=== PATIENT | female | born 1955 | race Caucasian/White ===

== ENCOUNTER → 2017-12-03 13:36 | Outpatient (CLI) | payer MEDICARE, MEDICAID, SELFPAY ==
--- NOTE | 2017-12-03 13:44 | CT_ITS ---
CT lung screening EXAM: CT LUNG LOW DOSE WO CONTRAST HISTORY: Asymptomatic with 30+ pack year smoking history ITS.REASON: H/O NICOTINE DEPENDENCE ORDERING PHYSICIAN: Abraham Adamson MD PATIENT AGE: 62 years COMPARISON: None TECHNIQUE: The exam was performed on a GE Light Speed [address] scanner using 2.90 mGy CTDI. A low dose helical CT CHEST was performed on a multi-detector scanner. All CT scans at the facility use one or more dose reduction, viz: automated exposure control, ma/kV adjustment per patient size (including targeted exams where dose is matched to indication, i.e. head), or iterative reconstruction technique. The LDCT was performed in a facility that meets the criteria for the screening program. Data regarding this exam was submitted to [employer] which is an approved registry. The order for this exam indicates that it came as a result of a lung cancer screening counseling shard decision-making visit that included all the elements required of such a visit including smoking cessation. The radiologist interpreting this exam meets the CMS criteria for the LDCT lung cancer screening program. The exam is reported using the Lung-RADS classification scale and reported to the [employer]CR registry. NOTE: This study was performed for the specific purposes of lung cancer screening and is not an alternative to diagnostic chest CT. RADIATION DOSE: CTDI vol(CT dose Index-volume) = 2.90mG DLP (Dose Length Product) = 96.38 mGcm FINDINGS: There is a 3 mm noncalcified nodule in the left perihilar region nonspecific. No suspicious pulmonary nodules are evident. Small nodes are present in the mediastinum. No central obstructing lesions. Atelectatic or fibrotic changes are present in the lung bases Incidental note made of coronary artery calcifications. Gas is present throughout the esophagus which could be due to reflux. IMPRESSION: 1. Lung RADS Category: 2, benign 2. Other findings: Coronary artery disease, nonspecific gas within the esophagus RECOMMENDATIONS: 12 month LDCT follow-up
== END ==
PROVIDERS: PCP Family Medicine; Visit Provider Family Medicine
DX: Z12.2 Encounter for screening for malignant neoplasm of respiratory organs (principal); Z87.891 Personal history of nicotine dependence

== ENCOUNTER → 2020-01-20 09:45 | Outpatient (CLI) | payer MEDICARE, MEDICAID, SELFPAY ==
[2020-01-21 16:17] LABS: Covid-19 Nasal PCR Sendout Lex Not Detected
== END ==
PROVIDERS: PCP Family Medicine; Visit Provider Nurse Practitioner Family
DX: Z03.818 Encounter for observation for suspected exposure to other biological agents ruled out (principal)
CPT/HCPCS: U0004

== ENCOUNTER 2020-04-07 16:19 | Emergency (ER) | payer MEDICARE, MEDICAID, SELFPAY ==
[2020-04-07 16:19] VITALS: BP 156/84; PULSE 128; RESP 18; TEMP 37.6; O2SAT 99; BMI 27.4
--- NOTE | 2020-04-07 16:51 | ECG_ITS ---
APPROVED REPORT Exam: Resting ECG HR:117 bpm ECG Measurements Heart Rate 117 AXES ND 144 P 75 QRSd 78 QRS 55 QT 318 T 60 QTc 443 Conclusion Sinus tachycardia Left atrial abnormality Borderline ECG Electronically signed by : Abraham Oglesby, 04/08/2020 08:39:56
--- NOTE | 2020-04-07 16:51 | XR_ITS ---
PROCEDURE: XR CHEST PORTABLE CLINICAL HISTORY: soa COMPARISON: No exams were available for comparison FINDINGS: The cardiomediastinal silhouette and pulmonary vascularity are within normal limits. Faint increased density is present in the right lower lung zone. This could be related to overlying soft tissue attenuation versus ground-glass infiltrate. Upright PA and lateral chest may provide further evaluation. Bone plate is present over lower cervical spine IMPRESSION: Possible patchy ground-glass infiltrate right lower lobe Dictated by: Rodney Batista MD 04/07/2020 18:06 Rodney Batista MD in [facility] 04/07/2020 18:06
[2020-04-07 16:58] VITALS: BP 143/67; PULSE 117; O2SAT 98
--- NOTE | 2020-04-07 17:02 | [facility].EDGENADL ---
ED Disposition Clinical Impression: Acute bronchitis Qualifiers: Bronchitis organism: unspecified organism Qualified Code(s): J20.9 - Acute bronchitis, unspecified Disposition: Home, Self-Care Condition on Discharge: Good Additional Instructions: Zithromax and prednisone as prescribed. Tessalon for cough. Follow-up with your cleat blanker for possible pulmonary hypertension, coronary artery calcification. Follow-up with your primary care provider, call Thursday for appointment. Call back to the emergency department in 3 hrs to obtain your COVID-19 test result. Quarantine yourself until you obtain your result. Additional instructions for SHORTNESS OF BREATH: See your physician as soon as possible for further evaluation. Return immediately if worsening shortness of breath or if vomiting, chest pain, fever, coughing of blood, or passing out. Prescriptions: predniSONE [Prednisone 20mg Tab] 20 mg PO BID #10 tab Prescription Printed Benzonatate [Tessalon Perle 100mg Cap] 100 mg PO TIDP PRN #20 cap PRN Reason: Cough Prescription Printed Azithromycin [Zithromax 250mg tab] 250 mg PO DAILY #4 tab Prescription Printed Referrals: Abraham Adamson MD [Primary Care Provider] - - Critical Care Critical Care Time: No Attestation: On 04/07/20, the high probability of a clinically significant, sudden or life threatening deterioration of the following system(s) required my full and direct attention, intervention and personal management. The time I documented below is in addition to time spent performing reported procedures but includes the following listed in this critical care notation. Medical Decision Making - [place]un[place] Inquiry Pt receiving controlled substance: No Vital Signs: 04/07/20 16:19 04/07/20 16:58 04/07/20 17:59 Temperature 99.7 F H Temperature Source Oral Pulse Rate [Left Radial] 128 H 117 H 117 H Respiratory Rate 18 Blood Pressure [Right Arm] 156/84 H 143/67 H 155/63 H Blood Pressure Mean [Right Arm] 108 92 93 Blood Pressure Source [Right Arm] Automatic Cuff Automatic Cuff Automatic Cuff Blood Pressure Position [Right Arm] Sitting Sitting Sitting 02 Sat by Pulse Oximetry 99 98 98 Oxygen Delivery Method Room Air Room Air Room Air - Lab Data Lab Results 04/07/20 16:25: WBC 9.5, RBC 5.42 H, Hgb 17.4 H, Hct 53.7 H, MCV 99.2 H, MCH 32.1 H, MCHC 32.4, RDW 14.6, Plt Count 428 H, MPV 7.9, Neut % (Auto) 55.1, Lymph % (Auto) 37.7, [place] % (Auto) 4.1, Eos % (Auto) 1.8, Baso % (Auto) 1.2, Neut # (Auto) 5.3, Lymph # (Auto) 3.6, [place] # (Auto) 0.4, Eos # (Auto) 0.2, Baso # (Auto) 0.1 04/07/20 16:25: Sodium 130 L, Potassium 3.8, Chloride 93 L, Carbon Dioxide 29, Anion Gap 11.8, BUN 11, Creatinine 0.90, Estimated Creat Clear 65, Estimated GFR 63, Est GFR ( Amer) 76, Glucose 215 H, Calcium 11.1 H, Total Bilirubin 0.8, AST 28, ALT 20, Alkaline Phosphatase 135 H, Troponin I 0.02, Total Protein 9.7 H, Albumin 5.2 H, Globulin 4.5 H, Albumin/Globulin Ratio 1.2 04/07/20 16:25: Lactate 1.3 04/07/20 16:52: D-Dimer 1.03 H Result diagrams: 04/07/20 16:25 04/07/20 16:25 Orders (Tests/Meds): ED MEDICATIONS Generic Name Dose Route Start Last Admin Trade Name Freq PRN Reason Stop Dose Admin Prednisone 40 mg 04/07/20 19:57 Prednisone 20mg Tab PO 04/07/20 19:58 ONCE ONE Sodium Chloride 10 ml 04/07/20 19:25 04/07/20 19:00 Sodium Chloride 0.9% 10ml Syr (Rad Only) IV 05/07/20 19:24 10 ml NEEDED PRN Administration Maintain IV Site Discontinued Medications Generic Name Dose Route Start Last Admin Trade Name Freq PRN Reason Stop Dose Admin Hydrocodone Bitart/Acetaminophen 1 tab 04/07/20 18:17 04/07/20 18:25 Hydrocodone 10mg/Apap 325mg Tab PO 04/07/20 18:18 1 tab ONCE ONE Administration Azithromycin 500 mg 04/07/20 19:56 Azithromycin 250mg Tablet PO 04/07/20 19:57 ONCE ONE Protocol Benzonatate 100 mg 04/07/20 19:56 Benzon
[2020-04-07 17:16] LABS: Chloride 93 mmol/L (98-107); Potassium 3.8 mmoL/L (3.5-5.1); Sodium 130 mmol/L (136-145)
[2020-04-07 17:19] LABS: Alanine Aminotransferase 20 U/L (12-78); Albumin Level 5.2 g/dl (3.5-5.0); Albumin/Globulin Ratio 1.2 (1.1-1.8); Alkaline Phosphatase 135 U/L (38-126); Anion Gap 11.8 mEq/L (5-15); Aspartate Amino Transferase 28 U/L (14-36); Basophils # 0.1 K/mm3 (0-0.2); Basophils % 1.2 % (0.1-2.0); Bilirubin,Total 0.8 mg/dl (0.2-1.3); Blood Urea Nitrogen 11 mg/dl (7-17); Carbon Dioxide 29 mmol/L (22.0-30.0); Creatinine Clearance Estimated 65 mL/min (50-200); Eosinophils # 0.2 K/mm3 (0.0-0.4); Eosinophils % 1.8 % (0.1-12.0); Estimated Glomerular Filt Rate 63 ml/min (>60); GFR (African American) 76 ML/MIN (>60); Globulin 4.5 g/dL (1.3-3.2); Hematocrit 53.7 % (37.0-47.0); Hemoglobin 17.4 g/dL (12.2-16.2); Lymphocytes # 3.6 K/mm3 (0.7-4.5); Lymphocytes % 37.7 % (10-50); Mean Corpuscular HGB Conc 32.4 g/dL (31.8-35.4); Mean Corpuscular Hemoglobin 32.1 pg (27.0-31.2); Mean Corpuscular Volume 99.2 fl (81-99); Mean Platelet Volume 7.9 fl (7.4-10.4); Monocytes # 0.4 K/mm3 (0.1-1.0); Monocytes % 4.1 % (1.7-9.3); Neutrophils # 5.3 K/mm3 (1.8-7.8); Neutrophils % 55.1 % (37.0-80.0); Platelet Count 428 K/mm3 (142-424); Red Blood Count 5.42 M/mm3 (4.20-5.40); Red Cell Distribution Width 14.6 % (11.5-17.5); Total Protein,Serum 9.7 g/dl (6.3-8.2); White Blood Count 9.5 K/mm3 (4.8-10.8)
[2020-04-07 17:20] LABS: Calcium 11.1 mg/dl (8.4-10.2); Glucose 215 mg/dl (74-100); Lactic Acid 1.3 mmol/L (0.7-2.1)
[2020-04-07 17:31] LABS: Troponin I 0.02 ng/ml (0.00-0.034)
[2020-04-07 17:59] VITALS: BP 155/63; PULSE 117; O2SAT 98
[2020-04-07 18:09] LABS: D-Dimer 1.03 ug/mL (0.0-0.5)
--- NOTE | 2020-04-07 18:17 | CT_ITS ---
PROCEDURE: CT ANGIO CHEST CLINCIAL INDICATION: cp, sob, elev d-dimer COMPARISON: No exams were available for comparison TECHNIQUE: IV Contrast: 70ML Isovue 370 Axial images obtained with sagittal and coronal reformats. All CT scans at the facility use one or more dose reduction, viz: automated exposure control, ma/kV adjustment per patient size (including targeted exams where dose is matched to indication, i.e. head), or iterative reconstruction technique. FINDINGS: HEART AND MEDIASTINAL STRUCTURES: Bolus timing is somewhat less than optimal 4 pulmonary embolus however, no obvious pulmonary embolus evident. No evidence of aortic aneurysm or dissection. The main pulmonary artery is somewhat prominent at 3.5 cm with pulmonary artery/aorta ratio greater than 1 suggesting pulmonary arterial hypertension. Coronary artery stents are present and there are coronary artery calcifications. The heart size is normal. No mediastinal or hilar mass. There is small amount of air within the esophagus which may be seen with reflux. There are few small mediastinal lymph nodes. LUNGS AND PLEURAL SPACES: Mild bronchial thickening. No lobar consolidation or collapse. There are mild atelectatic changes in the lung bases. There is minimal centrilobular emphysema BONY STRUCTURES: There are old left-sided rib fractures. UPPER ABDOMEN: Fatty liver. Mild diffuse thickening of the gastric wall which may be due to nondistention or gastritis. ADDITIONAL FINDINGS: Small axillary lymph nodes are present IMPRESSION: 1. No evidence of pulmonary embolus. 2. Suspected pulmonary arterial hypertension. 3. COPD with atelectatic or fibrotic changes in the lung bases. 4. Air within the esophagus which may be seen with reflux esophagitis. 5. Thickening of the gastric wall suggesting gastritis Dictated by: Rodney Batista MD 04/07/2020 19:46 Rodney Batista MD in [facility] 04/07/2020 19:46
--- NOTE | 2020-04-07 18:34 | PC.NURSE ---
Pt to rad.
[2020-04-07 20:07] VITALS: BP 150/59; PULSE 110; RESP 18; TEMP 37.2; O2SAT 98
[2020-04-07 20:24] LABS: Troponin I < 0.01 ng/ml (0.00-0.034)
== END 2020-04-07 20:13 | disposition home or self-care (01) ==
PROVIDERS: Emergency Provider Emergency Medicine; PCP Family Medicine
DX: Z20.822 Contact with and (suspected) exposure to COVID-19 (principal); J20.9 Acute bronchitis, unspecified; F17.210 Nicotine dependence, cigarettes, uncomplicated
CPT/HCPCS: 36415; 71045; 71275; 80053; 83605; 84484; 85025; 85378; 87040; 93005; 99283; Q9967; U0003